=== PATIENT | female | born 1970 | race Caucasian/White ===

== ENCOUNTER → 2018-08-27 | Outpatient (CLI) | payer OTHER ==
--- NOTE | 2018-08-27 10:48 | KCIC ---
Bilateral breast diagnostic ultrasound HISTORY: Palpable right left breast discovered by referring physician Sonographic examination of the breasts was performed bilaterally and multiple static images were obtained. Hypoechoic well-circumscribed nonshadowing lesion in the 10:00 right breast 2 cm nipple measures 4.5 x 5.0 x 2.2 mm and could be fibrocystic changes. This otherwise dense fibroglandular tissue scattered throughout the breasts bilaterally. There is normal-appearing lymph nodes nodes in the axilla bilaterally. IMPRESSION: Benign-appearing findings. Recommend a 6 month follow-up ultrasound of the benign-appearing lesion at 10:00 right breast and bilateral mammogram in 6 months. If the patient develops a new or worsening palpable abnormality a short-term follow-up ultrasound could be performed. These results were given to the patient in person. BI-RADS Category 3: Probably Benign. Electronically signed by: Natanael Colon III, MD (08/27/2018 10:44 AM) [id number]
--- NOTE | 2018-08-27 10:52 | KCIC ---
3d digital tomography [bilateral] History: Palpable abnormality left breast discovered by referring physician Technique: Bilateral 3d digital tomographic views were obtained with 3scale Meghan and reviewed on a Likewise Software workstation. In addition, CAD - computer aided detection was utilized. Comparison: None. Findings: Breast Tissue Density D : The breast tissue is predominantly dense. Scattered fibroglandular elements may obscure underlying pathology. There are multiple asymmetric tissue densities bilaterally which are not seen by ultrasound and could be superimposition of normal fibroglandular tissue. There are no suspicious microcalcifications or areas of architectural distortion. Impression: Benign-appearing findings. Recommend a follow-up right breast ultrasound and follow-up bilateral mammogram in 6 months. These results were given to the patient in person. BI-RADS Category 3: Probably Benign. The patient will receive a letter with the results in the mail. Your mammogram demonstrates that you have dense breast tissue, which could hide abnormalities, and if you have other risk factors for breast cancer that have been identified, you might benefit from supplemental screening tests that may be suggested by your ordering physician. Dense breast tissue, in and of itself, is a relatively common condition. This information is not provided to cause undue concern, but rather to raise your awareness and to promote discussion with your physician regarding the presence of other risk factors, in addition to dense breast tissue. A report of your mammography results will be sent to you and your physician. You should contact your physician if you have any questions or concerns regarding this report. A mammogram does not have 100% sensitivity and therefore a negative imaging study should not delay further work up of a suspicious abnormality. Patient information is entered into the [facility] reminder system using Giggem with a target due date for the next screening mammogram. The patient will receive a reminder. "Our facility is accredited by the [employer] Mammography Program." Electronically signed by: Natanael Colon III, MD (08/27/2018 10:48 AM) [facility]
== END | disposition home or self-care (01) ==
LOC: KCIC MAMMO 09:09
PROVIDERS: ATTEND Obstetrics & Gynecology
DX: N63.22 Unspecified lump in the left breast, upper inner quadrant (principal)
CPT/HCPCS: 76641; 77066; G0279; 77062

== ENCOUNTER → 2019-03-11 | Outpatient (CLI) | payer OTHER ==
--- NOTE | 2019-03-11 10:38 | KCIC ---
BILATERAL DIAGNOSTIC 3-D MAMMOGRAPHY AND RIGHT BREAST ULTRASOUND History: Six-month follow-up. Comparison: Bilateral mammogram and breast ultrasound 08/27/2018. Technique: Routine MLO and CC tomosynthesis (3D) digital views performed. Images reviewed by the radiologist at dedicated workstation. Findings: Breast Tissue Density D :The breasts are extremely dense, which lowers the sensitivity of mammography. There are no dominant masses, suspicious microcalcifications or architectural distortion. Real-time ultrasound imaging of the right breast is performed. Fibrocystic change at the 5:00 position 3 cm from the nipple measures up to 6 mm and is stable. 5 mm cyst at the 10:00 position 3 cm from the nipple is stable. No abnormal axillary lymph node. IMPRESSION: No mammographic evidence of malignancy. Right breast ultrasound findings are stable. Recommend routine mammogram screening. BI-RADS category 2: Benign findings. The images were reviewed with computer-aided detection. Patient information is entered into the reminder system with a target due date for the next screening mammogram. Mammography is the most sensitive method for finding small breast cancers, but it does not detect them all and is not a substitute for careful clinical examination. A negative mammogram does not negate a clinically suspicious finding and should not result in delay in biopsying a clinically suspicious abnormality. "Our facility is accredited by the [employer] Mammography Program." Electronically signed by: Kyle Soliz MD (03/11/2019 10:35 AM) [facility]
== END | disposition home or self-care (01) ==
LOC: KCIC MAMMO 08:56
PROVIDERS: ATTEND Obstetrics & Gynecology
DX: N60.01 Solitary cyst of right breast (principal)
CPT/HCPCS: 76641; 77066; G0279; 77062

== ENCOUNTER 2020-11-07 17:21 | Emergency (ER) | payer OTHER ==
[~2020-11-07] VITALS: Ht 160 cm; Wt 72.7 kg
--- NOTE | 2020-11-07 19:46 | PHYS DOC ---
General Adult EDM: Chief Complaint: ABNORMAL LABS HPI: HPI: Patient is a 50 year old patient female with history of heavy menstrual bleeding status post D&C, presents for low hemoglobin. She reports that she has history of heavy bleeding. After a D&C her menstrual bleeding lessened for a few months until last June. Starting from last June patient started having persistent vaginal bleeding. She has been following with her [employer] doctor Dr. Finch to discuss further management and has an upcoming appointment on Thursday. Patient had appointment last week with blood work and her hemoglobin last week was 7.2. She had a blood redrawn today and the hemoglobin was 6.9 and was thus sent to the ER for transfusion. Patient reports chronic fatigue. She gets tired easily after exertion or exercise. Patient denies any fever chills, chest pain, shortness of air, cough, abdominal pain, change in hearing or vision, and numbness and tingling in the hands and feet. Patient is the main historian. Review of Systems: Review of Systems: Review of systems: Constitutional symptoms- No fever, no chills. Eyes- No Discharge, No Visual Loss Respiratory symptoms- No shortness of breath, No wheezing, No Dyspnea on Exertion Cardiovascular Systems; No chest pain, No Palpitations, No syncope Gastrointestinal symptoms: NO abdominal pain, no nausea, no vomiting or diarrhea. Genitourinary symptoms: No dysuria. Patient reports heavy menstrual bleeding since June. Is currently bleeding now. Musculoskeletal symptoms: No back pain No extremity pain. NEUROLOGICAL Symptoms: No headache, no generalized weakness; No focal Weakness Heart Score: C/O Chest Pain: No Risk Factors: Risk Factors: DM, Current or recent (<one month) smoker, HTN, HLP, family history of CAD, obesity. Risk Scores: Score 0 - 3: 2.5% MACE over next 6 weeks - Discharge Home Score 4 - 6: 20.3% MACE over next 6 weeks - Admit for Clinical Observation Score 7 - 10: 72.7% MACE over next 6 weeks - Early Invasive Strategies Allergies: Allergies: Allergies Coded Allergies Type Severity Reaction Last Updated Verified No Known Drug Allergies 11/07/20 No Physical Exam: PE: General: alert, no acute distress. Skin: warm, dry and intact. Head:: Normocephalic, atraumatic. Neck: Trachea midline. Eyes: EOMI, Normal conjunctiva, No drainage CARDIOVASCULAR: Regular rate and rhythm RESPIRATORY: No respiratory distress Back: Full range of motion. MUSCULOSKELETAL: Full range of motion of bilateral upper and lower extremities. GASTROINTESTINAL: Abdomen soft without rebound or guarding. NEUROLOGICAL: Alert and noted to person, place and time. No neurological deficits observed Psychiatric: Cooperative. Normal judgment - exam deferred EKG: EKG: [] Radiology/Procedures: Radiology/Procedures: [] Course & Med Decision Making: Course & Med Decision Making Pertinent Labs and Imaging studies reviewed. (See chart for details) [] Patient was evaluated for chief complaint. Work-up consisted of laboratory analysis. Patient presented with a hemoglobin below 7. Redraw lab confirms this. Patient was transfused 2 units and then discharged home. Patient has scheduled appointment with OB next week. Bharat Disclaimer: Bharat Disclaimer: This electronic medical record was generated, in whole or in part, using a voice recognition dictation system. Departure Departure Impression: Primary Impression: Anemia Additional Impression: Dysfunctional uterine bleeding Disposition: 01 DC HOME SELF CARE/HOMELESS Condition: STABLE Referrals: ROCHELLE BURNS MD (PCP) Patient Instructions: Anemia, Nonspecific-Brief, Uterine Bleeding, Dysfunctional NKECHI MORELOS I DO Nov 07, 2020 19:46
[2020-11-07 20:16] LABS: BASO % 1 % (0-3); EOS # 0.1 x10^3/uL (0.0-0.7); EOS % 2 % (0-3); HEMATOCRIT 21.9 % (36.0-47.0); LYMPH # 1.6 x10^3/uL (1.0-4.8); LYMPH % 20 % (24-48); MEAN CORPUSCULAR HEMOGLOBIN 23 pg (25-35); MEAN CORPUSCULAR HGB CONC 31 g/dL (31-37); MEAN CORPUSCULAR VOLUME 73 fL (79-100); MONO # 0.4 x10^3/uL (0.0-1.1); MONO % 5 % (0-9); NEUT # 5.9 x10^3/uL (1.8-7.7); NEUT % 73 % (31-73); PLATELET COUNT 445 x10^3/uL (140-400); RED BLOOD COUNT 3.02 x10^6/uL (3.50-5.40); RED CELL DISTRIBUTION WIDTH 17.2 % (11.5-14.5); WHITE BLOOD COUNT 8.2 x10^3/uL (4.0-11.0)
[2020-11-07 20:22] LABS: HEMOGLOBIN 6.8 g/dL (12.0-15.5)
[2020-11-07 20:33] LABS: CALCIUM 9.1 mg/dL (8.5-10.1); CREATININE 0.9 mg/dL (0.6-1.0); GFR 66.5; POTASSIUM 3.6 mmol/L (3.5-5.1)
[2020-11-07 20:37] LABS: ALBUMIN 3.5 g/dL (3.4-5.0); PLT ESTIMATE INCREASED (ADEQUATE); POLYCHROMASIA SLIGHT; TOTAL BILIRUBIN 0.4 mg/dL (0.2-1.0)
[2020-11-07 20:49] LABS: ANISOCYTOSIS SLIGHT; HYPOCHROMIA MOD; MICROCYTOSIS MOD
[2020-11-07 21:27] VITALS: BP 132/65
[2020-11-07 22:27] VITALS: BP 131/66
[2020-11-07 22:48] VITALS: BP 139/70
[2020-11-07 23:48] VITALS: BP 135/98
== END 2020-11-08 | disposition home or self-care (01) ==
LOC: ER 17:21
DX: D64.9 Anemia, unspecified (principal); N93.8 Other specified abnormal uterine and vaginal bleeding; R53.82 Chronic fatigue, unspecified
CPT/HCPCS: 36415; 36430; 80053; 83690; 85025; 86850; 86900; 86901; 86920; 99285; P9016

== ENCOUNTER → 2021-02-06 | Outpatient (CLI) | payer OTHER ==
--- NOTE | 2021-02-06 15:41 | RAD ---
PROCEDURE: MG BILAT SCREEN+ARMANDO HISTORY: The patient is 50 years old and is seen for Reason: SCREENING MAMMOGRAM / Spl. Instructions: / History: . COMPARISON: March 11, 2019. TECHNIQUE: CC and MLO views of both breasts were obtained. Images were processed by the [employer] computer-aided detection system. DENSITY: The breast parenchyma is extremely dense, which could obscure a lesion on mammography. FINDINGS: No developing mass, suspicious calcifications or architectural distortion. IMPRESSION: Negative. No evidence of malignancy. Recommend annual screening mammograms per [employer] guidelines. She will be due in one year. BI-RADS category 1 Negative Patient entered into a reminder system for annual screening mammogram. Electronically signed by: Damaso Gutierrez DO (02/06/2021 3:39 PM) [id number]
== END ==
LOC: MAMMO 14:18
PROVIDERS: ATTEND Obstetrics & Gynecology
DX: Z12.31 Encounter for screening mammogram for malignant neoplasm of breast (principal)
CPT/HCPCS: 77063; 77067